=== PATIENT | female | born 1995 | race Caucasian/White ===

== ENCOUNTER → 2018-06-24 15:36 | Observation (INO) ==
[2018-06-24 14:55] LABS: Bilirubin,Urine Negative (Negative); Blood,Urine Negative (Negative); Color,Urine Yellow (Yellow); Glucose,Urine (UA) Normal (Normal); Ketones,Urine Negative (Negative); Leukocyte Esterase,Urine Small (Negative); Nitrite,Urine Negative (Negative); Protein,Urine Negative (Neg-Trace); Specific Gravity,Urine 1.011 (1.010-1.025); Urobilinogen,Urine Normal (Normal)
[2018-06-24 14:57] LABS: Bacteria,Urine Many per hpf (None-Few); Hyaline Casts,Urine None Seen per lpf (None-Few); RBC,Urine 0-3 per hpf (0-3); Squamous Epithelial Cell,Urine Many per lpf (None-Few)
[2018-06-24 15:00] LABS: Clarity,Urine Clear (Clear)
[2018-06-24 15:20] LABS: Amphetamine Screen,Urine Negative ng/mL (Cutoff=1000); Barbiturate Screen,Urine Negative ng/mL (Cutoff=200); Benzodiazepines Screen,Urine Negative ng/mL (Cutoff=200); Cannabinoid Screen,Urine Negative ng/mL (Cutoff = 50); Cocaine Screen,Urine Negative ng/mL (Cutoff= 300); Opiate Screen,Urine Negative ng/mL (Cutoff=300); Phencyclidine Screen,Urine Negative ng/mL (Cutoff=25)
--- NOTE | 2018-06-24 15:46 | OB/GYN Progress Note ---
Date of Encounter: 06/24/18 Time of Encounter: 15:44 - Assessment and Plan (1) 28 weeks gestation of Current Visit: Yes Status: Acute (2) Round ligament pain Current Visit: Yes Status: Acute UA negative., cervix closed, discussed round ligament pain and causes. Discharged home with labor instructions. Subjective - Subjective Interval history: 28+3 presents to triage with complains of abdominal pain. Pt states she has been feeling sharp abdominal pains around umbilicus mostly on right side since last night, pain increases with movement. Reports good movement, denies vaginal bleeding or leaking of fluid. Pt also stated she felt light headed on way down but resolved after rolling down window, no complaints of dizziness in triage. care at Mr. Shruti Espino with Dr. Ramirez Antepartum ROS: movement normal, no loss of fluid, no vaginal bleeding, no contractions Objective - Vital Signs Vital Signs: Intake and Output 06/23/18 06/24/18 06/24/18 23:59 07:59 15:59 Other: Weight 73.936 kg Patient Weight 06/24/18 23:59 Weight 73.936 kg - Exam FHR: auscultation normal Abdomen: Present: soft, gravid Cervical dilation: 2 outer OS/ closed inner OS/ thick/ high - Labs Labs: Abnormal lab results Ur Leukocyte Esterase Small (Negative) H 06/24/18 14:34 Urine Microscopic WBC 5-15 per hpf (0-3) H 06/24/18 14:34 Ur Squamous Epith Cells Many per lpf (None-Few) H 06/24/18 14:34 Urine Bacteria Many per hpf (None-Few) H 06/24/18 14:34 Ur Culture Indicated? NO. (NO) A 06/24/18 14:34
== END | disposition home or self-care (01) ==
LOC: 1NENULAB
PROVIDERS: ADMIT Advanced Practice Midwife; ATTEND Advanced Practice Midwife